=== PATIENT | male | born 1995 | race Caucasian/White ===

== ENCOUNTER 2017-01-12 07:13 | Emergency (ER) | payer OTHER ==
[2017-01-12] MEDS ORDERED: NS 1,000 ML IV ONE (07:37)
[2017-01-12] MEDS ORDERED: KETOROLAC 30 MG/1 ML SDV IVP ONE (07:42)
--- NOTE | 2017-01-12 08:13 | EDPHY ---
HPI/HX/ROS/PE/MDM Narrative: CHIEF COMPLAINT: "I think I have the flu," cough, fever HPI: The patient is a 21 y/o male complaining of a cough and subjective fever for the last few days. He initially developed a dry cough 5-6 days ago that has since become productive with brownish-green phlegm. He complains of associated myalgias, rhinorrhea, and reduced appetite. He has been using ibuprofen and Benadryl with some alleviation of his symptoms. He denies abdominal pain, vomiting, diarrhea, or recent travel. His roommate is ill with similar symptoms. REVIEW OF SYSTEMS: Aside from elements discussed in the HPI, a comprehensive 10-point review of systems was reviewed and is negative. PMH: Denies SOCIAL HISTORY: [employer] student PHYSICAL EXAM: General:Patient is alert, in no acute distress. ENT:Eyes are normal to inspection. ENT inspection normal. Neck: Normal inspection. Full range of motion. Respiratory:No respiratory distress. Breath sounds normal bilaterally. Cardiovascular: Regular rate and rhythm. Strong peripheral pulses. Normal cap refill. Abdomen:The abdomen is nontender to palpation. There are no peritoneal signs. There are normal bowel sounds. Back: Normal to inspection. No tenderness to palpation. Skin: Normal color. No rash. Warm and dry. Extremities: Normal appearance. Full range of motion. Neuro: Oriented x3. Normal motor function. Normal sensory function. ED Course: This is a healthy 21 y/o male presenting with a 5-6 day history of cough and subjective fever with associated myalgias. His exam is unremarkable and his vitals are within normal limits. He has no evidence of sepsis. Plan for flu swab , IV, chest x-ray, and symptom management. 30mg IV Toradol and 1L IV NS administered. Study: Chest x-ray Indication: Cough, fever Results: Chest x-ray was obtained. The results of the study are negative. Radiologist report pending. I viewed the images myself on the PACS system. Flu swab is negative. Patient is feeling improved after fluids and Toradol administration. He will be discharged with standard viral syndrome care instructions including Tylenol/ibuprofen directions as needed for fever and pain. He understands he can follow up with his PCP if needed for unimproved symptoms over the next week. He is comfortable with this plan. Return precautions given. MDM: This is a young healthy male who presents with a friend with similar symptoms that are consistent with viral syndrome. His chest x-ray, abdominal exam, blood work and flu swab were all negative. I think he is appropriate for outpatient management. I see no signs of meningitis, sepsis, pneumonia, influenza or acute abdominal process. - Data Points Laboratory Results: Laboratory Results 01/12/17 07:37 01/12/17 01/12/17 01/12/17 07:37 07:37 07:37 WBC Pending RBC Pending Hgb Pending Hct Pending MCV Pending MCH Pending MCHC Pending RDW Pending Plt Count Pending MPV Pending Neut % (Auto) Pending Lymph % (Auto) Pending Davison % (Auto) Pending Eos % (Auto) Pending Baso % (Auto) Pending Nucleat RBC Rel Count Pending Absolute Neuts (auto) Pending Absolute Lymphs (auto) Pending Absolute Monos (auto) Pending Absolute Eos (auto) Pending Absolute Basos (auto) Pending Absolute Nucleated RBC Pending Immature Gran % Pending Immature Gran # Pending Sodium 140 mEq/L mEq/L (134-144) Potassium 3.6 mEq/L mEq/L (3.5-5.2) Chloride 109 mEq/L mEq/L (97-110) Carbon Dioxide 17 mEq/l L mEq/l (22-31) Anion Gap 14 mEq/L mEq/L (8-16) BUN 17 mg/dL mg/dL (7-23) Creatinine 0.9 mg/dL mg/dL (0.7-1.3) Estimated GFR > 60 Glucose 103 mg/dL H mg/dL (70-100) Calcium 9.6 mg/dL mg/dL (8.5-10.4) Influenza Typ A,B (DFA) NEGATIVE FOR FLU (NEGATIVE) Medications Given: Discontinued Medications Sodium Chloride (Ns) 1,000 mls @ 0 mls/hr IV ONCE ONE PRN Reason: Wide Open Stop: 01/12/17 07:38 Last Admin: 01/12/17 07:38 Dose: 1,000 mls Ketorolac Tromethamine (Toradol) 30 mg IVP EDNOW ONE Stop: 01/12/17 07:43 Last Admin: 01/12/17 07:52 Dose: 30 mg General Time Seen by Provider: 01/12/17 07:23 Initial Vital Signs: Initial Vital Signs Temperature (C) 36.8 C 01/12/17 07:17 Heart Rate 92 01/12/17 07:17 Respiratory Rate 22 H 01/12/17 07:17 Blood Pressure 130/90 H 01/12/17 07:17 O2 Sat (%) 97 01/12/17 07:17 O2 Delivery Mode Room Air Allergies/Adverse Reactions: No Known Allergies Allergy (Unverified 01/12/17 07:17) Home Medications: Medication Instructions Recorded NK [No Known Home Meds] 01/12/17 Departure - Departure Disposition: Home, Routine, Self-Care Clinical Impression: Cough, Viral syndrome Condition: Good Instructions: Viral Syndrome (ED) Additional Instructions: 1. Increase fluid intake as tolerated. 2. Continue alternating Tylenol and ibuprofen for pain and fever as needed over the next 3-5 days. 3. Follow up with your primary care provider for symptoms not improved over the next week. 4. Practice good hand hygiene as you are likely contagious while symptoms are present. Adult Pain & Fever Control: We recommend Acetaminophen (Tylenol) and Ibuprofen (Motrin,Advil) for pain and fever control. When fever is high or pain severe, both drugs can be used at the same time, but at different intervals. Please note the time differences. Your dose is: Acetaminophen 650mg every 4 to 6 hours Ibuprofen 600mg every 6-8 hours with food Note: do not take Acetaminophen with Hydrocodone (Vicodin, Lortab) or Oxycodone (Percocet). These medications also contain Acetaminophen. No more than 3000mg of Acetaminophen should be taken in 24 hours (for an adult). Referrals: ANTONINA Johnson,. [Clinic] - As per Instructions Report Scribed for: Kip Whitaker Report Scribed by: Fernanda Schilling Date of Report: 01/12/17 Time of Report: 08:10 Physician Review and Approval Statement: Portions of this note were transcribed by an ED scribe. I personally performed the history, physical exam, and medical decision making; and confirm the accuracy of the information in the transcribed note.
[2017-01-12 08:33] LABS: % IMMATURE GRANULYOCYTES 0.5 % (0.0-1.1); ABSOLUTE IMMATURE GRANULOCYTES 0.03 10^3/uL (0.00-0.10); ADD DIFF? NO; ADD MORPH? NO; ADD SCAN? YES; FRAGMENT RBC FLAG 0 (0-99); HEMOGLOBIN 17.6 g/dL (13.7-17.5); LEFT SHIFT FLG 10 (0-99); LIPEMIA HEMOLYSIS FLAG 90 (0-99); MEAN CELL HEMOGLOBIN 29.2 pg (27.9-34.1); MEAN CELL HEMOGLOBIN CONCENTR. 33.8 g/dL (32.4-36.7); MEAN CELL VOLUME 86.4 fL (81.5-99.8); MEAN PLATELET VOLUME 12.1 fL (8.7-11.7); PLATELET CLUMPS FLAG 0 (0-99); PLATELET COUNT 136 10^3/uL (150-400); RED BLOOD CELL COUNT 6.02 10^6/uL (4.40-6.38); RED CELL DISTRIBUTION WIDTH 13.8 % (11.5-15.2)
[2017-01-12 08:39] LABS: ANION GAP 14 mEq/L (8-16); CALCIUM 9.6 mg/dL (8.5-10.4); CARBON DIOXIDE 17 mEq/l (22-31); CHLORIDE 109 mEq/L (97-110); CREATININE 0.9 mg/dL (0.7-1.3); GLOMERULAR FILTRATION RATE > 60; GLUCOSE 103 mg/dL (70-100); POTASSIUM 3.6 mEq/L (3.5-5.2); SODIUM 140 mEq/L (134-144)
[2017-01-12 08:57] VITALS: BP 129/88; PULSE 89; RESP 14; TEMP 99; O2SAT 92
[2017-01-12 09:01] LABS: ATYPICAL LYMPHOCYTE FLAG 110 (0-99)
[2017-01-12 09:27] LABS: SCAN POSITIVE
[2017-01-12 09:34] LABS: PLATELET ESTIMATE DECREASED (ADEQ)
== END 2017-01-12 08:56 | disposition home or self-care (01) ==
DX: B34.9 Viral infection, unspecified (principal)
CPT/HCPCS: 96374; J1885

== ENCOUNTER 2017-08-08 13:53 | Emergency (ER) | payer OTHER ==
[2017-08-08 14:04] VITALS: BP 115/63; PULSE 104; RESP 17; TEMP 97.5; O2SAT 95
== END 2017-08-08 15:00 | disposition left against medical advice (07) ==
DX: Z53.21 Procedure and treatment not carried out due to patient leaving prior to being seen by health care provider (principal)

== ENCOUNTER 2017-10-31 11:43 | Emergency (ER) | payer BC, OTHER ==
[2017-10-31 11:53] VITALS: PULSE 93; RESP 17
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
[2017-10-31 12:52] VITALS: BP 149/91; TEMP 99.1; O2SAT 97
== END 2017-10-31 12:52 | disposition home or self-care (01) ==
DX: S62.320A Displaced fracture of shaft of second metacarpal bone, right hand, initial encounter for closed fracture (principal); W51.XXXA Accidental striking against or bumped into by another person, initial encounter; Y93.89 Activity, other specified